=== PATIENT | male | born 2000 | race Caucasian/White ===

== ENCOUNTER 2022-05-15 19:05 | Emergency (ER) | payer OTHER ==
[2022-05-15] MEDS ORDERED: MOTRIN600 MG PO (21:56)
== END 2022-05-15 22:30 | disposition home or self-care (01) ==
LOC: FER 19:05
DX: M79.645 Pain in left finger(s) (principal); Z28.310 Unvaccinated for COVID-19; Z91.041 Radiographic dye allergy status; W18.39XA Other fall on same level, initial encounter; Y92.009 Unspecified place in unspecified non-institutional (private) residence as the place of occurrence of the external cause
CPT/HCPCS: 73110; 73130